=== PATIENT | female | born 1975 | race Caucasian/White ===

== ENCOUNTER 2017-06-13 23:35 | Emergency (ER) | payer MEDICAID ==
[~2017-06-13] VITALS: Ht 154.9 cm; Wt 59.0 kg
[2017-06-14] MEDS ORDERED: ONDANSETRON 4MG ODT PO STA (00:31)
[2017-06-14] MEDS ORDERED: SODIUM CHLORIDE 0.9% 1,000 ML IV ONE (00:31)
[2017-06-14] MEDS ORDERED: PHENYTOIN 10MG/ML SYR IV ONE (00:45)
[2017-06-14] MEDS ORDERED: LORAZEPAM 2MG/ML CPJ IV ONE (00:45)
[2017-06-14] MEDS ORDERED: PHENYTOIN SODIUM 500 MG in SODIUM CHLORIDE 0.9% 100 ML IV SCH (01:00)
[2017-06-14 01:05] LABS: BASOPHILS % 0.6 % (0.0-2.0); HEMATOCRIT. 34.5 % (36.0-48.0); HEMOGLOBIN. 11.9 g/dL (12.0-16.0); LYMPHOCYTES % 10.9 % (20.0-50.0); MEAN CORPUSCULAR HEMOGLOBIN 30.1 pg (28.0-32.0); MEAN CORPUSCULAR VOLUME 87.2 fL (81.0-99.0); MEAN PLATELET VOLUME 7.2 fl (7.4-10.4); MONOCYTES % 7.9 % (2.0-8.0); NEUTROPHILS % 80.6 % (40.0-76.0); PLATELET 310 x1000/uL (130-400); RED BLOOD CELL COUNT 3.96 mill/uL (4.2-5.4); RED CELL DISTRIBUTION WIDTH 14.8 % (11.6-14.6)
[2017-06-14 01:10] LABS: CHLORIDE 103 mEq/L (98-107)
[2017-06-14 01:15] LABS: ETHANOL BLOOD < 10 mg/dL
[2017-06-14 04:08] LABS: CLARITY URINE CLEAR (CLEAR); COLOR URINE YELLOW (YELLOW); KETONES URINE 4+ (NEGATIVE); LEUKOCYTE ESTERASE URINE NEGATIVE (NEGATIVE); NITRITE URINE NEGATIVE (NEGATIVE); OCCULT BLOOD URINE NEGATIVE (NEGATIVE); PH URINE 5.5 (4.5-8.0); PROTEIN URINE NEGATIVE (NEGATIVE); SPECIFIC GRAVITY URINE 1.023 (1.005-1.030); UROBILINOGEN URINE 0.2 E.U./dL (0.2-1.0)
[2017-06-14 04:21] LABS: *AMPHETAMINES SCREEN URINE PRESUMTIVE POSITIVE (NEGATIVE); *BARBITURATES SCREEN URINE NEGATIVE (NEGATIVE); *BENZODIAZEPINES SCREEN URINE NEGATIVE (NEGATIVE); *COCAINE SCREEN URINE NEGATIVE (NEGATIVE); CANNABINOID URINE SCREEN NEGATIVE (NEGATIVE); METHADONE URINE SCREEN NEGATIVE (NEGATIVE); OPIATES URINE SCREEN NEGATIVE (NEGATIVE); PHENCYCLIDINE URINE SCREEN NEGATIVE (NEGATIVE)
[2017-06-14 10:35] VITALS: BP 122/75
== END 2017-06-14 10:57 | disposition home or self-care (01) ==
LOC: ER 23:35
DX: G40.909 Epilepsy, unspecified, not intractable, without status epilepticus (principal); F17.200 Nicotine dependence, unspecified, uncomplicated; F31.9 Bipolar disorder, unspecified; D49.6 Neoplasm of unspecified behavior of brain; Z59.0 Homelessness; Z91.19 Patient's noncompliance with other medical treatment and regimen; Z98.890 Other specified postprocedural states
CPT/HCPCS: 36415; 70450; 80053; 80305; 81003; 85025; 96361; 96365; 96366; 96375; 99285; G0482; J1165; J2060; J7030; Q0162; Z7610; J7050

== ENCOUNTER 2020-08-04 09:29 | Emergency (ER) | payer OTHER ==
[~2020-08-04] VITALS: Ht 149.9 cm; Wt 78.0 kg
[~2020-08-04 09:29] MED LIST: KEPP500 MT; PHEN100C4 MT
[2020-08-04] MEDS ORDERED: PHEN100C4 PO (10:05)
[2020-08-04] MEDS ORDERED: KEPP500 PO (10:05)
[2020-08-04] MEDS ORDERED: IBUPROFEN 400MG TABLET PO ONE (10:15)
[2020-08-04] MEDS ORDERED: METOCLOPRAMIDE HCL 10MG TABLET PO ONE (10:15)
[2020-08-04 10:33] VITALS: BP 110/69
== END 2020-08-04 10:33 | disposition home or self-care (01) ==
LOC: ER 09:29
DX: G40.909 Epilepsy, unspecified, not intractable, without status epilepticus (principal); Z76.0 Encounter for issue of repeat prescription; F31.9 Bipolar disorder, unspecified; F17.210 Nicotine dependence, cigarettes, uncomplicated; Z98.890 Other specified postprocedural states
CPT/HCPCS: 81025; 93005; 99283; J8597